=== PATIENT | male | born 1955 | race Caucasian/White ===

== ENCOUNTER 2017-07-30 09:59 | Emergency (ER) | payer BC ==
[2017-07-30 10:17] VITALS: BP 122/82
--- NOTE | 2017-07-30 10:28 | ED ---
Upper Extremity Pain - HPI Summary HPI Summary: 61 yr old male with the complaint of right hand pain. Onset yesterday when he hit the 3/4 MP joint areas on the clutch pedal of a tractor at home. He has pain in this area, worse with flexion. no other complaints. - History of Current Complaint Chief Complaint: UCUpperExtremity Stated Complaint: RT HAND INJURY Time Seen by Provider: 07/30/17 10:18 - Allergies/Home Medications Allergies/Adverse Reactions: Allergies Allergy/AdvReac Type Severity Reaction Status Date / Time No Known Allergies Allergy Verified 07/30/17 10:13 Home Medications: Home Medications Anxiety Med 1 tab PO DAILY 07/30/17 [History Confirmed 07/30/17] PMH/Surg Hx/FS Hx/Imm Hx - Surgical History Surgery Procedure, Year, and Place: 1983 Infectious Disease History: No Infectious Disease History: Denies: Traveled Outside the [place] in Last 30 Days - Family History Known Family History: Positive: None - Social History Alcohol Use: Weekly Substance Use Type: Reports: None Smoking Status (MU): Never Smoked Tobacco Review of Systems Constitutional: Negative Positive: Other - pain right hand 3/4 MP joint area All Other Systems Reviewed And Are Negative: Yes Physical Exam Triage Information Reviewed: Yes Vital Signs On Initial Exam: Initial Vitals Temp Pulse Resp BP Pulse Ox 97.8 F 58 17 122/82 99 07/30/17 10:10 07/30/17 10:10 07/30/17 10:10 07/30/17 10:10 07/30/17 10:10 Vital Signs Reviewed: Yes Appearance: Positive: Well-Appearing, No Pain Distress Skin: Positive: Warm, Skin Color Reflects Adequate Perfusion Head/Face: Positive: Normal Head/Face Inspection Eyes: Positive: EOMI ENT: Positive: Normal ENT inspection Neck: Positive: Supple, Nontender Respiratory/Lung Sounds: Positive: Other - normal respiratory effort. Cardiovascular: Positive: Pulses are Symmetrical in both Upper and Lower Extremities - radial pulse intact. cap refill intact. Abdomen Description: Negative: Distended Musculoskeletal: Positive: Other - right hand with slight edema right 3/4 mp area. Neuro vascular intact right hand. Neurological: Positive: Sensory/Motor Intact, Alert, Oriented to Person Place, Time, CN Intact II-III Psychiatric: Positive: Normal AVPU Assessment: Alert - [place] Coma Scale Best Eye Response: 4 - Spontaneous Best Motor Response: 6 - Obeys Commands Best Verbal Response: 5 - Oriented Coma Scale Total: 15 Diagnostics - Vital Signs Vital Signs Temp Pulse Resp BP Pulse Ox 07/30/17 10:10 97.8 F 58 17 122/82 99 - Laboratory Lab Statement: Any lab studies that have been ordered have been reviewed, and results considered in the medical decision making process. - Radiology hand right Xray Interpretation: No Acute Changes Radiology Interpretation Completed By: Radiologist Course/Dx - Course Course Of Treatment: 61 yr old with contusion to the hand right. - Diagnoses Provider Diagnoses: Contusion of hand, right Discharge - Sign-Out/Discharge Documenting (check all that apply): Discharge/Admit/Transfer - Discharge Plan Condition: Good Disposition: HOME Patient Education Materials: Contusion in Adults (ED) Referrals: Derrek BEARD,Shira Gaxiola [Primary Care Provider] - 2 Days - Billing Disposition and Condition Condition: GOOD Disposition: Home
--- NOTE | 2017-07-30 10:41 | RAD ---
INDICATION: Right hand injury COMPARISON: None TECHNIQUE: AP, lateral, and oblique views were obtained. FINDINGS: There is no convincing evidence of acute injury. There is underlying osteoarthritis about the third MCP joint and the first MCP joint. The joint spaces are preserved. The soft tissues are intact. IMPRESSION: UNDERLYING OSTEOARTHRITIC CHANGE. NO ACUTE FINDINGS
== END 2017-07-30 10:48 | disposition home or self-care (01) ==
LOC: UCCORT 09:59
DX: S60.221A Contusion of right hand, initial encounter (principal); W22.8XXA Striking against or struck by other objects, initial encounter; Y92.009 Unspecified place in unspecified non-institutional (private) residence as the place of occurrence of the external cause
CPT/HCPCS: 99211; G0463